=== PATIENT | female | born 1990 | race Caucasian/White ===

== ENCOUNTER 2017-01-20 22:39 | Emergency (ER) | payer SELFPAY ==
[~2017-01-20] VITALS: Ht 162.6 cm; Wt 79.0 kg
[~2017-01-20 22:39] MED LIST: IRON45TA2 PO; PREN-39 PO
[2017-01-20 22:46] VITALS: Ht 162.6 cm; Wt 79.0 kg
[2017-01-20] MEDS ORDERED: NYST1000 PO (23:16)
[2017-01-20] MEDS ORDERED: CLOT30CR24 TOP (23:16)
--- NOTE | 2017-01-20 23:23 | ERD ---
ER Documentation Chief Complaint Date/Time DATE: 01/20/17 TIME: 23:20 Chief Complaint WHITE PATCHES ON TONGUE X 2 DAYS, RIGHT WRIST REDNESS/ITCH HPI 27-year-old female comes emergency department white patches on the time that she noticed 2 days ago she also comes in with right-sided wrist rash. She states that the tongue lesions are not painful, and she does not know how long they have been there for near on the tongue as well as the left side of her mouth. She has not had any trouble swallowing, fevers, chills or drainage to the area. She is also had a pruritic rash on the right wrist for the past 2 days. ROS All systems reviewed and are negative except as per history of present illness. Medications Home Meds Active Scripts Clotrimazole* (Clotrimazole* AF) 1% - 30 Gm Cream.gm., 1 APPLIC TOP BID for 7 Days, TUB Prov:FLORIAN RIDDLE PA-C 01/20/17 Nystatin (Nystatin) 100,000 Unit/1 Ml Oral.susp, 3 ML PO QID for 7 Days, OZ Swish and swallow Prov:FLORIAN RIDDLE PA-C 01/20/17 Reported Medications Iron,Carbonyl (IRON) 45 Mg Tablet, 45 MG PO DAILY 02/09/13 Vits W-Ca,Fe,Fa(<1MG) ( Vitamins) 1 Tab Tablet, 1 TAB PO DAILY 02/09/13 Allergies Allergies: Coded Allergies: No Known Allergy (Verified , 01/20/17) PMhx/Soc Medical and Surgical Hx: pt denies Surgical Hx History of Surgery: No Anesthesia Reaction: No Hx Neurological Disorder: No Hx Respiratory Disorders: No Hx Cardiac Disorders: No Hx Psychiatric Problems: No Hx Miscellaneous Medical Probl: Yes (anemia) Hx Alcohol Use: No Hx Substance Use: No Hx Tobacco Use: No Physical Exam Vitals Vital Signs Date Time Temp Pulse Resp B/P Pulse Ox O2 Delivery O2 Flow Rate FiO2 01/20/17 22:46 99.0 69 16 130/82 99 Physical Exam General: Well-developed, well-nourished. The patient appears in no acute distress. HEENT: Head is normocephalic, atraumatic. No scleral icterus. Oropharynx is clear, there are white patches on the tongue that is circular, also circular white lesions on the left buccal mucosa. There are nondescript local. Neck: Supple. Nontender. Lungs: Clear to auscultation. Normal air movement. Heart: Regular rate and rhythm. S1 and S2 are normal. No murmurs, gallops, or rubs. Abdomen: Nondistended. Extremities: No clubbing or cyanosis. Moving extremities x 4. No weakness. Neurologic: Alert and oriented 3. No focal deficits. Normal speech and gait. Skin: right wrist that has a 1cm rash, erythematous and raised Procedures/MDM 27-year-old female comes in with white patches on tongue, lips and mouth as well as a rash on the right wrist Wrist rash appears to look like a fungal infection, and also itching. Patient also presents with white patches on the tongue, no clear signs of fungal infection in the mouth. She will be given nystatin and was asked by . May consider biopsy or removal. Departure Diagnosis: Primary Impression: Sore in mouth Additional Impression: Rash Condition: Good Patient Instructions: What Are Oral Lesions? (Precancerous and Cancerous), Ana Skin Infection (Adult) Additional Instructions: Call your primary care doctor TOMORROW for an appointment during the next 1-2 days.See the doctor sooner or return here if your condition worsens before your appointment time. If tongue symptoms do not improve, follow up with your primary care doctor for a biopsy. FLORIAN RIDDLE PA-C Jan 20, 2017 23:22
[2017-01-20 23:38] VITALS: BP 126/82; PULSE 60; RESP 16; TEMP 99
== END 2017-01-20 23:41 | disposition home or self-care (01) ==
LOC: FTE 22:39
DX: K13.79 Other lesions of oral mucosa (principal)
CPT/HCPCS: 99283

== ENCOUNTER 2018-06-24 12:14 | Outpatient (CLI) | payer OTHER ==
[~2018-06-24] VITALS: Ht 162.6 cm; Wt 89.9 kg
[~2018-06-24 12:14] MED LIST changes: +CLOT30CR24 TOP; +NYST1000 PO
[2018-06-24 12:21] VITALS: Ht 162.6 cm; Wt 89.9 kg
[2018-06-24 12:23] VITALS: BP 131/85; PULSE 79; RESP 17
[2018-06-24] MEDS ORDERED: PREN-93 PO (12:25)
--- NOTE | 2018-06-24 13:57 | TRIAGE ---
OB Triage Datetime Report Generated by CPN: 06/24/2018 13:56 Datetime: 06/24/2018 13:16 Labor Evaluation Frequency: NONE Monitor Mode: External Pattern: Normal: <= 5 Contractions in 10 Minutes Resting Tone [place]: Relaxed Heart Rate FHR Baseline Rate: 150 Monitor Mode: External US FHR Baseline Changes: No Baseline Change Variability: Moderate 6-25 bpm Accelerations: 15X15 Decelerations: None Category: Category I Datetime: 06/24/2018 12:43 Comments: EFM OFF FOR BEDSIDE U/S. Datetime: 06/24/2018 12:29 Assessment Type: Triage Maternal Assessment Level of Consciousness: Fully Conscious DTR's/Clonus: DTRs 2+; No Clonus Headache: Denies Blurred Vision: No Respiratory Effort: Unlabored; Regular Rhythm; Equal Expansion Breath Sounds, Left: Clear and Equal Breath Sounds, Right: Clear and Equal Nausea/Vomiting: Denies RUQ Epigastric Pain: Denies Lower Extremities Edema: None Upper Extremities Edema: None Facial Edema: None Fall Risk Assessment History of Falling: (0) No Secondary Diagnosis: (0) No Ambulatory Aid: (0) Bedrest/Nurse Assist IV Therapy: (0) No Gait: (0) Normal/Bedrest/Immobile Mental Status: (0) Oriented to Own Ability Fall Score: 0 Fall Risk Score Definition: No Risk: No action required Datetime: 06/24/2018 12:26 Time of Arrival: 06/24/2018 12:01 EGA: 31.3 Arrived By: Ambulatory Arrived From: Office Chief Complaint: HIGH BLOOD PRESSURES Movement: Present Contractions: Denies/Absent Rupture of Membranes: Denies Vaginal Bleeding: None Vaginal Discharge: Denies Recent Sexual Intercouse: Denies Abdominal Trauma: Not Applicable Patient Complaints: None Time Provider Notified: 06/24/2018 13:45 Provider Notified: ESHAJOHANNY Initial Plan: BLOOD PRESSURE CHECK, PIH LABS, BPP Datetime: 06/24/2018 12:16 Monitor Mode: External Monitor Mode: External US
--- NOTE | 2018-07-29 18:24 | PN ---
Triage Information Date/Time Reason for visit: [facility] for NST BPP Weeks of Gestation 32+ /Para n/a Diabetes: none Hypertention: none Objective Heart Rate: 140's Contractions: None Disposition: Discharge Assessment/Plan BPP 04/30 Precautions discussed Questions answered Labs reviewed Follow up with provider MENDOZA BEYER M.D. Jul 29, 2018 18:24
== END 2018-06-24 14:08 | disposition home or self-care (01) ==
LOC: OBT 12:14 → L-D 12:14 → OBT 14:08
PROVIDERS: ATTEND Obstetrics & Gynecology
DX: O13.3 Gestational [pregnancy-induced] hypertension without significant proteinuria, third trimester (principal); Z3A.32 32 weeks gestation of pregnancy
CPT/HCPCS: 76815; 76818; 80053; 81001; 84560; 85025; 85384; 85610; 85730; Z7500; G0463

== ENCOUNTER 2018-06-26 12:57 | Outpatient (CLI) | END 2018-06-26 17:40 | disposition home or self-care (01) ==

== ENCOUNTER 2018-07-09 13:40 | Inpatient (IN) | END 2018-07-11 16:45 | disposition home or self-care (01) | DRG 833 ==

== ENCOUNTER 2018-07-13 11:19 | Outpatient (CLI) | END 2018-07-13 13:25 | disposition home or self-care (01) ==

== ENCOUNTER 2018-07-15 14:29 | Outpatient (CLI) | END 2018-07-15 16:30 | disposition home or self-care (01) ==

== ENCOUNTER 2018-07-18 14:59 | Outpatient (CLI) | END 2018-07-18 18:32 | disposition home or self-care (01) ==

== ENCOUNTER 2018-07-23 13:18 | Inpatient (IN) | payer OTHER ==
[~2018-07-23] VITALS: Ht 162.6 cm; Wt 91.9 kg
[~2018-07-23 13:18] MED LIST changes: -CLOT30CR24 TOP; -IRON45TA2 PO; -NYST1000 PO; -PREN-39 PO; +PREN-93 PO
[2018-07-23 15:08] VITALS: Ht 162.6 cm; Wt 91.9 kg
[2018-07-23] MEDS ORDERED: LACTATED RINGER'S 1,000 ML IV SCH (17:42)
--- NOTE | 2018-07-23 18:05 | TRIAGE ---
OB Triage Datetime Report Generated by CPN: 07/23/2018 18:04 Datetime: 07/23/2018 17:18 Labor Evaluation Frequency: 0 Monitor Mode: External Heart Rate FHR Baseline Rate: 130 Monitor Mode: External US FHR Baseline Changes: No Baseline Change Variability: Moderate 6-25 bpm Accelerations: 15X15 Decelerations: None Category: Category I Pain Assessment Pain Presence: None/Denies Datetime: 07/23/2018 15:46 Labor Evaluation Frequency: 0 Monitor Mode: External Heart Rate FHR Baseline Rate: 140 Monitor Mode: External US FHR Baseline Changes: No Baseline Change Variability: Moderate 6-25 bpm Accelerations: 15X15 Decelerations: None Category: Category I Pain Assessment Pain Presence: None/Denies Datetime: 07/23/2018 15:25 Labor Evaluation Frequency: 0 Monitor Mode: External Heart Rate FHR Baseline Rate: 140 Monitor Mode: External US FHR Baseline Changes: No Baseline Change Variability: Moderate 6-25 bpm Accelerations: 15X15 Decelerations: None Category: Category I Pain Assessment Pain Presence: None/Denies Datetime: 07/23/2018 15:00 Time of Arrival: 07/23/2018 15:00 EGA: 35.4 Arrived By: Ambulatory Arrived From: Office Chief Complaint: HIGH BP Movement: Present Contractions: Denies/Absent Rupture of Membranes: Denies Vaginal Bleeding: None Vaginal Discharge: Denies Recent Sexual Intercouse: Denies Abdominal Trauma: Not Applicable Patient Complaints: None Time Provider Notified: 07/23/2018 17:28 Provider Notified: HADADIAN Initial Plan: CBC,CMP,URIC ACID, UA, BPP, DORCAS Datetime: 07/23/2018 14:55 Labor Evaluation Frequency: 0 Monitor Mode: External Heart Rate FHR Baseline Rate: 140 Monitor Mode: External US FHR Baseline Changes: No Baseline Change Variability: Moderate 6-25 bpm Accelerations: 15X15 Decelerations: None Category: Category I Pain Assessment Pain Presence: None/Denies Datetime: 07/23/2018 14:21 Stage of : OB Triage Assessment Type: Triage Maternal Assessment Level of Consciousness: Fully Conscious DTR's/Clonus: DTRs 2+; No Clonus Headache: Denies Blurred Vision: No Respiratory Effort: Unlabored; Regular Rhythm; Equal Expansion Breath Sounds, Left: Clear and Equal Breath Sounds, Right: Clear and Equal Nausea/Vomiting: Denies RUQ Epigastric Pain: Denies Facial Edema: None Temperature Route: Axillary Temperature Route: Oral Fall Risk Assessment History of Falling: (0) No Secondary Diagnosis: (0) No Ambulatory Aid: (0) Bedrest/Nurse Assist IV Therapy: (0) No Gait: (0) Normal/Bedrest/Immobile Mental Status: (0) Oriented to Own Ability Fall Score: 0 Fall Risk Score Definition: No Risk: No action required Datetime: 07/18/2018 18:24 Labor Evaluation Frequency: 0 Monitor Mode: External Pattern: Normal: <= 5 Contractions in 10 Minutes Resting Tone [place]: Relaxed Heart Rate FHR Baseline Rate: 140 Monitor Mode: External US Variability: Moderate 6-25 bpm Accelerations: 15X15 Decelerations: None Category: Category I Datetime: 07/18/2018 18:00 Labor Evaluation Frequency: X2 Monitor Mode: External Duration (sec)2399: 40-60 Quality: Mild Pattern: Normal: <= 5 Contractions in 10 Minutes Resting Tone [place]: Relaxed Heart Rate FHR Baseline Rate: 140 Monitor Mode: External US Variability: Moderate 6-25 bpm Accelerations: 15X15 Decelerations: None Category: Category I Datetime: 07/18/2018 17:00 Labor Evaluation Frequency: NONE Monitor Mode: External Pattern: Normal: <= 5 Contractions in 10 Minutes Resting Tone [place]: Relaxed Heart Rate FHR Baseline Rate: 140 Monitor Mode: External US Variability: Moderate 6-25 bpm Accelerations: 15X15 Decelerations: None Category: Category I Datetime: 07/18/2018 15:52 Fall Score: 0 Fall Risk Score Definition: No Risk: No action required Datetime: 07/18/2018 15:51 EGA: 34.6 Datetime: 07/15/2018 14:57 Fall Score: 0 Fall Risk Score Definition: No Risk: No action required Datetime: 07/15/2018 14:54 EGA: 34.3 Datetime: 07/13/2018 12:10 Fall Score: 0 Fall Risk Score Definition: No Risk: No action required Datetime: 07/11/2018 08:24 Fall Score: 20 Fall Risk Score Definition: No Risk: No action required Datetime: 07/10/2018 19:30 Fall Score: 20 Fall Risk Score Definition: No Risk: No action required Datetime: 07/10/2018 07:30 Fall Score: 20 Fall Risk Score Definition: No Risk: No action required Datetime: 07/09/2018 20:04 Fall Score: 20 Fall Risk Score Definition: No Risk: No action required Datetime: 07/09/2018 14:45 EGA: 34.1 Fall Score: 20 Fall Risk Score Definition: No Risk: No action required Datetime: 07/09/2018 12:27 Fall Score: 0 Fall Risk Score Definition: No Risk: No action required Datetime: 07/09/2018 12:26 EGA: 33.4 Datetime: 06/26/2018 14:04 Fall Score: 0 Fall Risk Score Definition: No Risk: No action required Datetime: 06/26/2018 14:01 EGA: 31.5 Datetime: 06/24/2018 12:29 Fall Score: 0 Fall Risk Score Definition: No Risk: No action required Datetime: 06/24/2018 12:26 EGA: 31.3
[2018-07-23 18:32] VITALS: BP 141/91; PULSE 92; RESP 18
--- NOTE | 2018-07-23 18:39 | HP ---
Date/Time of Note Date/Time of Note DATE: 07/23/18 TIME: 18:24 OB - History Hx of Present Free Text/Dictation 28-year-old with single intrauterine at 35 weeks and 4 days with a VIKTORIA of 08/23 2018 sent from her primary OB office due to elevated of blood pressure of 155/105. She has a 24-hour urine protein on 07/10/2018 which was 1770. She has received betamethasone x2 on 07/10/2018 and and currently is steroid benefited. She states good movement. She denies nausea, vomiting, shortness of breath, chest pain, headache, visual changes, vaginal bleeding or LOF. Chief Complaint: Elevated blood pressure Estimated Due Date: Aug 23, 2018 : 3 Para: 2 Spontaneous : 0 Therapeutic : 0 Care: Good Care Ultrasounds: Normal mid trimester US Obstetrical Complications: Pre-eclampsia Medical Complications: None Past Family/Social History * Past Medical, Surgical, Family and Obstetric Histories reviewed from chart. Blood Type: AB+ Rubella: immune RPR/VDRL: Negative HBsAG: Negative OB Admission Exam Vital Signs Vital Signs Blood pressure 139/87, pulse rate 72/minutes, respiratory rate 14/minutes, temperature 98.1 Physical Exam HEENT: WNL Heart: Rhythm Normal Lungs: Clear Abdomen: WNL Extremities: Normal Reflexes: Normal Membranes: Intact Heart Rate: 140's Accelerations: Accelerations Present Decelerations: No Decelerations Varibility: Moderate Contractions on Admission: None Last 72 hours Lab Results CBC & BMP 07/23/18 14:26 Liver Function Test 07/23/18 14:26 Alanine Aminotransferase (ALT/SGPT) 18 Albumin 3.6 Alkaline Phosphatase 184 H Aspartate Amino Transf (AST/SGOT) 15 Direct Bilirubin 0.00 Total Protein 6.6 OB Assessment/Plan Other plan: 28-year-old at 35 weeks and 4 days with preeclampsia admitted for close observation. She has a 24-hour urine protein on 07/10/2018 which was 1770. She has received betamethasone x2 on 07/10/2018 and currently is steroid benefited. CBC and CMP is within normal limits. Uric acid is 7.7. I have discussed patient with Dr. Gongora over the phone who has agreed with admission and close observation. She recommended delivery with any symptom or sign of preeclampsia with severe features, placental abruption or nonreassuring heart rate - FHR: No sign of metabolic acidosis- Category I - Continuous EFM, toco - Please see the orders - AB+/Rubella: Immune - Ultrasound performed, DORCAS 14.3, BPP 8 out of 8 - GBS done - Labs, ultrasound, admission, management discussed in detail with patient. She expressed understanding. All of her questions answered. Patient discussed with primary OB too. . RYANNE HENDERSON Jul 23, 2018 18:37
[2018-07-23] MEDS ORDERED: LACTATED RINGER'S 1,000 ML IV PRN (20:38)
[2018-07-24] MEDS: PRENATAL VITAMIN PO SCH (09:13)
--- NOTE | 2018-07-24 17:18 | QN ---
Documentation Comment pateint seen and evaluated no complaints no headache, n/v, sob visual changes epigastric pain vs stable afebrile ab gravid, nt extremity no edema no calf tenderness a iup at 35 wks ga, preeclampsia without severe features p/ consider discharge home tomorrow is patient has no symptoms per TESHA Dalton MD Jul 24, 2018 17:18
--- NOTE | 2018-07-25 03:42 | CONS ---
DATE OF ADMISSION: 07/23/2018 DATE OF CONSULTATION: 07/24/2018 HISTORY OF PRESENT ILLNESS: The patient is a G3, P2 at 35 and 5, who was admitted from clinic after having severe range blood pressures. At the hospital, her blood pressures have been in the normal to moderate range. Labs are normal. She has no symptoms. She denies any history of hypertension. Pr egnancy 2x vaginal delivery, 9 pounds. No evidence of hypertension. PAST MEDICAL HISTORY: Otherwise negative. PHYSICAL EXAMINATION: Vital signs: Blood pressure 131/93. Physical exam was deferred. heart tones reassuring. A 24-hour urine for protein is over 1000 mg. Received betamethasone less than 14 days ago. RECOMMENDATIONS: Monitor overnight. If there is no evidence of severe hypertension and she is asymp tomatic and heart tone is reassuring, we might consider discharging the patient home with asser tion of the modified bed rest, testing twice weekly, and labs weekly. If there is any uncertainty in terms of elevated blood pressure, nonreassuring heart tone, and maternal symptoms, delivery is recommended. I did explain to them in detail the necessity of the bed rest, and she is to stay with her mother dilshad se to the hospital since they live at [place]. However, if she is unable to stay with her mother o r she feels that at home she cannot rest, then I do recommend in-house management. In case of even 1 severe range blood pressure, I do recommend delivery because she, on multiple visit s at her clinic, had systolic blood pressure over 160, but at this visit currently, she is asymptomat ic with no evidence of severe blood pressures. Therefore, I am comfortable to continue with the preg sandi. However, if she does not have any severe range blood pressure in the hospital, then I do tessie mmend delivery as she is severe preeclamptic with over 34 weeks. Please schedule testing twice weekly and labs weekly and delivery maximum at 37 weeks, soon er otherwise as stated above. Dictated By: ALPHONSE LOUIS MD ST/NTS Conf#: [id number] DID#: [id number] CC: TESHA DASH MD;*EndCC*
--- NOTE | 2018-07-25 08:50 | DS ---
DATE OF ADMISSION: 07/23/2018 DATE OF DISCHARGE: 07/25/2018 PRIMARY DIAGNOSES: Intrauterine at 35 weeks and 6 days gestational age, preeclampsia witho ut severe features, undelivered. PROCEDURE: None. CONDITION ON DISCHARGE: Stable. ACTIVITY: As tolerates. DIET: Regular. MEDICATIONS ON DISCHARGE: Continue vitamins. HISTORY OF PRESENT ILLNESS: Ms. Joselyn Barnhart is a 28-year-old 3, para 2, intrauterine pre gnancy at 35 weeks and 6 days gestational age, was admitted on 07/23/2018 secondary to elevated uric acid and also was sent from the office for elevated blood pressures. She was diagnosed with preeclam psia. However, she has no severe features. Her blood pressures are within normal. She denies any h eadache, nausea, vomiting, shortness of breath, visual change, or epigastric pain. HOSPITAL COURSE: The patient is currently in no apparent distress and patient given strict preeclamp tic precautions to go home. She will follow up for her scheduled nonstress test and biophysical prof emily. She is also instructed to do her blood pressures on a regular basis and to follow up in the ER if her blood pressures are in the severe range. She will be scheduled on 08/02/2018 for induction. Again, strict preeclamptic precautions given to patient. Dictated By: TESHA GARCIA/LIO Conf#: [id number] DID#: [id number]
[2018-07-25] MEDS: PRENATAL VITAMIN PO SCH (09:38)
== END 2018-07-25 10:20 | disposition home or self-care (01) | DRG 833 ==
LOC: L-D 13:18 → OBT 13:18 → L-D 13:49 → OBT 17:45 → L-D 17:45
PROVIDERS: ADMIT Obstetrics & Gynecology; ATTEND Obstetrics & Gynecology
DX: O14.93 Unspecified pre-eclampsia, third trimester (principal); Z3A.35 35 weeks gestation of pregnancy
CPT/HCPCS: 76818; 80053; 81001; 84560; 85025; 85384; 85610; 85730; 86900; 86901; G0463; J7120

== ENCOUNTER 2018-07-30 18:11 | Outpatient (CLI) | payer OTHER ==
--- NOTE | 2018-07-31 00:15 | PN ---
Triage Information Date/Time July 30, 2018 Reason for visit: Weeks of Gestation 36 weeks and 4 days /Para 3 para 2 Diabetes: none Hypertention: induced Additional information 28-year-old with IUP at 36 weeks and 4 days and -induced hypertension was sent for rule out preeclampsia due to elevated blood pressure noted during office visit. Patient denies any headache, blurred vision epigastric pain or right upper quadrant pain. Noted to have blood pressure in the range of 140s 150s over 80s and her last 3 encounter visits. Denies any leaking of fluid, vaginal bleeding decreased movement or any other complaint. Objective Heart Rate: 130's Heart Rate Comments Reassuring and category 1 Contractions: None Exam General appearance: Alert and oriented x4 does not appear to be in any acute distress. Abdomen: Soft, gravid, fundal height consistent with gestational age NST: Category 1 and reassuring PIH labs are all negative UA negative for protein Serial blood pressure done during observation in triage all in the range of 130s-140s over 80s-90s. Results/Medications Result Diagram: 07/30/18190007/30/181900 Results 24 hrs Laboratory Tests Test 07/30/18 19:00 07/30/18 19:01 07/30/18 19:02 Urine Color YELLOW Urine Clarity CLEAR Urine pH 6.0 Urine Specific [place] 1.014 Urine Ketones NEGATIVE Urine Nitrite NEGATIVE Urine Bilirubin NEGATIVE Urine Urobilinogen NEGATIVE Urine Leukocyte Esterase TRACE A Urine Microscopic RBC 4 Urine Microscopic WBC 8 H Urine Squamous Epithelial Cells FEW Urine Calcium Oxalate Crystals FEW A Urine Bacteria FEW A Urine Mucus FEW A Urine Hemoglobin NEGATIVE Urine Glucose NEGATIVE Urine Total Protein NEGATIVE White Blood Count 10.1 Red Blood Count 4.52 Hemoglobin 11.0 L Hematocrit 35.2 L Mean Corpuscular Volume 77.9 L Mean Corpuscular Hemoglobin 24.3 L Mean Corpuscular Hemoglobin Concent 31.3 L Red Cell Distribution Width 15.8 H Platelet Count 213 Mean Platelet Volume 11.7 H Immature Granulocytes % 0.700 H Neutrophils % 61.3 Lymphocytes % 26.8 Monocytes % 9.1 Eosinophils % 1.8 Basophils % 0.3 Nucleated Red Blood Cells % 0.0 Immature Granulocytes # 0.070 H Neutrophils # 6.2 Lymphocytes # 2.7 Monocytes # 0.9 Eosinophils # 0.2 Basophils # 0.0 Nucleated Red Blood Cells # 0.0 Sodium Level 137 Potassium Level 4.3 Chloride Level 109 Carbon Dioxide Level 20 L Anion Gap 8 Blood Urea Nitrogen 12 Creatinine 0.73 Est Glomerular Filtrat Rate mL/min > 60 Glucose Level 86 Uric Acid 7.9 Calcium Level 13.0 H Total Bilirubin 0.0 L Direct Bilirubin 0.00 Indirect Bilirubin 0.0 Aspartate Amino Transf (AST/SGOT) 18 Alanine Aminotransferase (ALT/SGPT) 17 Alkaline Phosphatase 207 H Total Protein 7.4 Albumin 3.9 Globulin 3.50 H Albumin/Globulin Ratio 1.11 Prothrombin Time 11.7 L Prothrombin Time Ratio 0.9 INR International Normalized Ratio 0.85 Activated Partial Thromboplast Time 23.9 Fibrinogen 443.0 Imaging Results PROCEDURE: Biophysical profile. CLINICAL INDICATION: Pelvic pain, hypertension. TECHNIQUE: Multiple sonographic images of the pelvis were obtained with transabdominal technique. COMPARISON: 07/23/2018. FINDINGS: There is a single living intrauterine gestation with the fetus in a vertex position. The placenta is posterior and left lateral in location, grade II to III. heart tones of 163 beats per minute are identified. There is normal amniotic fluid volume with an DORCAS of 17.8 cm. breathing movements = 2 Gross body movements = 2 tone = 2 Qualitative AFV = 2 IMPRESSION: Biophysical profile 8 out of 8. Disposition: Discharge Assessment/Plan IUP at 36 weeks and 4 days PIH No evidence of severe preeclampsia Mild elevated blood pressure. Asymptomatic PIH labs are normal testing reassuring Patient will be discharged home with a strict PIH precaution, kick counts and labor precautions Patient has been scheduled for induction at 37 weeks Advised patient rest at home Return to triage as needed and to keep her appointment at 37 weeks for induction. Patient verbalized understanding. All questions were answered to the patient's best satisfaction. LAURENCE NAVARRO MD Jul 31, 2018 00:15
--- NOTE | 2018-07-31 07:22 | TRIAGE ---
OB Triage Datetime Report Generated by CPN: 07/31/2018 07:21 Datetime: 07/30/2018 22:53 Stage of : OB Triage Labor Evaluation Frequency: 2-4 Monitor Mode: External Duration (sec)2399: 50-90 Pattern: Normal: <= 5 Contractions in 10 Minutes Resting Tone [place]: Relaxed Heart Rate FHR Baseline Rate: 130 Monitor Mode: External US Variability: Moderate 6-25 bpm Accelerations: 15X15 Decelerations: None Category: Category I Datetime: 07/30/2018 22:00 Stage of : OB Triage Labor Evaluation Frequency: 2-4 Monitor Mode: External Duration (sec)2399: 50-90 Pattern: Normal: <= 5 Contractions in 10 Minutes Resting Tone [place]: Relaxed Heart Rate FHR Baseline Rate: 130 Monitor Mode: External US Variability: Moderate 6-25 bpm Accelerations: 15X15 Decelerations: None Category: Category I Pain Assessment Pain Scale: 0 Pain Presence: None/Denies Pain Type: N/A Pain Relief Measures: Comfort Measures Datetime: 07/30/2018 21:56 Vaginal Exam Dilatation (cms): 0.0 Datetime: 07/30/2018 21:00 Stage of : OB Triage Labor Evaluation Frequency: 2-5 Monitor Mode: External Duration (sec)2399: 50-80 Pattern: Normal: <= 5 Contractions in 10 Minutes Resting Tone [place]: Relaxed Heart Rate FHR Baseline Rate: 140 Monitor Mode: External US Variability: Moderate 6-25 bpm Accelerations: 15X15 Decelerations: None Category: Category I Datetime: 07/30/2018 20:24 Time of Arrival: 07/30/2018 18:05 EGA: 36.4 Movement: Present Contractions: Occasional Rupture of Membranes: Denies Vaginal Bleeding: None Vaginal Discharge: Denies Recent Sexual Intercouse: Denies Abdominal Trauma: Not Applicable Patient Complaints: None Time Provider Notified: 07/30/2018 21:05 Provider Notified: ESHAGHIAN Initial Plan: VS, NST, PIH panel, BPP Datetime: 07/30/2018 20:00 Stage of : OB Triage Assessment Type: Triage Maternal Assessment Level of Consciousness: Fully Conscious DTR's/Clonus: DTRs 2+; No Clonus Headache: Denies Blurred Vision: No Respiratory Effort: Unlabored; Regular Rhythm; Equal Expansion Breath Sounds, Left: Clear and Equal Breath Sounds, Right: Clear and Equal Nausea/Vomiting: Denies RUQ Epigastric Pain: Denies Lower Extremities Edema: None Degree: None Upper Extremities Edema: None Degree: None Facial Edema: None Temperature Route: Axillary Fall Risk Assessment History of Falling: (0) No Secondary Diagnosis: (0) No Ambulatory Aid: (0) Bedrest/Nurse Assist IV Therapy: (0) No Gait: (0) Normal/Bedrest/Immobile Mental Status: (0) Oriented to Own Ability Fall Score: 0 Fall Risk Score Definition: No Risk: No action required Labor Evaluation Frequency: Occasional Monitor Mode: External Duration (sec)2399: 40-50 Resting Tone [place]: Relaxed Contraction Comments: patient denies feeling any contractions Heart Rate FHR Baseline Rate: 145 Monitor Mode: External US Variability: Moderate 6-25 bpm Accelerations: 15X15 Decelerations: None Category: Category I Pain Assessment Pain Scale: 0 Pain Presence: None/Denies Pain Type: N/A Pain Goal: 0 Pain Relief Measures: Comfort Measures Datetime: 07/25/2018 10:11 Labor Evaluation Frequency: x3 Monitor Mode: External Duration (sec)2399: 50-60 Quality: Mild Resting Tone [place]: Relaxed Contraction Comments: pt denies feeling UCs Heart Rate FHR Baseline Rate: 135 Monitor Mode: External US FHR Baseline Changes: No Baseline Change Variability: Moderate 6-25 bpm Accelerations: 15X15 Decelerations: None Category: Category I Datetime: 07/25/2018 07:53 Assessment Type: Ongoing Assessment Maternal Assessment Level of Consciousness: Fully Conscious DTR's/Clonus: DTRs 2+; No Clonus Headache: Denies Blurred Vision: No Respiratory Effort: Unlabored; Regular Rhythm; Equal Expansion Breath Sounds, Left: Clear and Equal Breath Sounds, Right: Clear and Equal Nausea/Vomiting: Denies RUQ Epigastric Pain: Denies Lower Extremities Edema: Bilateral Lower Extremities Degree: 1+ Upper Extremities Edema: None Degree: None Facial Edema: None Fall Risk Assessment History of Falling: (0) No Secondary Diagnosis: (0) No Ambulatory Aid: (0) Bedrest/Nurse Assist IV Therapy: (0) No Gait: (0) Normal/Bedrest/Immobile Mental Status: (0) Oriented to Own Ability Fall Score: 0 Fall Risk Score Definition: No Risk: No action required Datetime: 07/25/2018 07:52 Stage of : Antepartum Temperature Route: Oral Pain Assessment Pain Scale: 0 Pain Presence: None/Denies Pain Type: N/A Datetime: 07/25/2018 00:37 Stage of : Antepartum Temperature Route: Oral Pain Assessment Pain Scale: 0 Pain Presence: None/Denies Pain Type: N/A Datetime: 07/24/2018 21:01 Pain Assessment Pain Scale: 0 Pain Presence: None/Denies Pain Type: N/A Datetime: 07/24/2018 20:39 Stage of : Antepartum Labor Evaluation Frequency: x1 Monitor Mode: External Duration (sec)2399: 80 Quality: Mild Pattern: Normal: <= 5 Contractions in 10 Minutes Resting Tone [place]: Relaxed Heart Rate FHR Baseline Rate: 135 Monitor Mode: External US Variability: Moderate 6-25 bpm Accelerations: 15X15 Decelerations: None Category: Category I Datetime: 07/24/2018 20:00 Stage of : Antepartum Assessment Type: Ongoing Assessment Maternal Assessment Level of Consciousness: Fully Conscious DTR's/Clonus: DTRs 2+; No Clonus Headache: Denies Blurred Vision: No Respiratory Effort: Unlabored; Regular Rhythm; Equal Expansion Breath Sounds, Left: Clear and Equal Breath Sounds, Right: Clear and Equal Nausea/Vomiting: Denies RUQ Epigastric Pain: Denies Lower Extremities Edema: None Degree: None Upper Extremities Edema: None Degree: None Facial Edema: None Temperature Route: Oral Fall Risk Assessment History of Falling: (0) No Secondary Diagnosis: (0) No Ambulatory Aid: (0) Bedrest/Nurse Assist IV Therapy: (0) No Gait: (0) Normal/Bedrest/Immobile Mental Status: (0) Oriented to Own Ability Fall Score: 0 Fall Risk Score Definition: No Risk: No action required Pain Assessment Pain Scale: 0 Pain Presence: None/Denies Pain Type: N/A Datetime: 07/24/2018 19:58 Monitor Mode: External Monitor Mode: External US Comments: Monitors applied. NST started. Datetime: 07/24/2018 19:17 Stage of : Antepartum Datetime: 07/24/2018 15:28 Maternal Assessment Level of Consciousness: Fully Conscious DTR's/Clonus: DTRs 2+ Headache: Denies Blurred Vision: No Nausea/Vomiting: Denies RUQ Epigastric Pain: Denies Facial Edema: None Datetime: 07/24/2018 14:38 Stage of : Antepartum Pain Presence: None/Denies Pain Type: N/A Datetime: 07/24/2018 13:59 Stage of : Antepartum Maternal Assessment Level of Consciousness: Fully Conscious DTR's/Clonus: DTRs 2+ Headache: Denies Blurred Vision: No Nausea/Vomiting: Denies RUQ Epigastric Pain: Denies Facial Edema: None Pain Presence: None/Denies Pain Type: N/A Datetime: 07/24/2018 12:18 Stage of : Antepartum Pain Presence: None/Denies Pain Type: N/A Datetime: 07/24/2018 11:16 Stage of : Antepartum Maternal Assessment Level of Consciousness: Fully Conscious DTR's/Clonus: DTRs 2+ Headache: Denies Blurred Vision: No Nausea/Vomiting: Denies RUQ Epigastric Pain: Denies Facial Edema: None Pain Presence: None/Denies Pain Type: N/A Datetime: 07/24/2018 10:32 Stage of : Antepartum Labor Evaluation Frequency: 0 Pattern: Normal: <= 5 Contractions in 10 Minutes Resting Tone [place]: Relaxed Heart Rate FHR Baseline Rate: 145 Monitor Mode: External US Variability: Moderate 6-25 bpm Accelerations: 15X15 Decelerations: None Category: Category I Pain Presence: None/Denies Pain Type: N/A Datetime: 07/24/2018 09:10 Stage of : Antepartum Maternal Assessment Level of Consciousness: Fully Conscious DTR's/Clonus: DTRs 2+ Headache: Denies Blurred Vision: No Nausea/Vomiting: Denies RUQ Epigastric Pain: Denies Facial Edema: None Pain Presence: None/Denies Pain Type: N/A Datetime: 07/24/2018 08:24 Stage of : Antepartum Pain Assessment Pain Scale: 0 Pain Presence: None/Denies Pain Type: N/A Pain Goal: 0 Datetime: 07/24/2018 07:23 Stage of : Antepartum Assessment Type: Ongoing Assessment Maternal Assessment Level of Consciousness: Fully Conscious DTR's/Clonus: DTRs 2+; No Clonus Headache: Denies Blurred Vision: No Respiratory Effort: Unlabored; Regular Rhythm; Equal Expansion Breath Sounds, Left: Clear and Equal Breath Sounds, Right: Clear and Equal Nausea/Vomiting: Denies RUQ Epigastric Pain: Denies Lower Extremities Edema: None Degree: None Upper Extremities Edema: None Degree: None Facial Edema: None Temperature Route: Oral Fall Risk Assessment History of Falling: (0) No Secondary Diagnosis: (0) No Ambulatory Aid: (0) Bedrest/Nurse Assist IV Therapy: (0) No Gait: (0) Normal/Bedrest/Immobile Mental Status: (0) Oriented to Own Ability Fall Score: 0 Fall Risk Score Definition: No Risk: No action required Monitor Mode: NST Q SHIFT Monitor Mode: NST Q SHIFT Pain Assessment Pain Scale: 0 Pain Presence: None/Denies Pain Type: N/A Pain Goal: 0 Datetime: 07/24/2018 05:52 Stage of : Antepartum Pain Assessment Pain Scale: 0 Pain Presence: None/Denies Pain Type: N/A Datetime: 07/24/2018 04:42 Stage of : Antepartum Maternal Assessment Level of Consciousness: Fully Conscious DTR's/Clonus: DTRs 2+; No Clonus Headache: Denies Breath Sounds, Left: Clear and Equal Breath Sounds, Right: Clear and Equal Nausea/Vomiting: Denies RUQ Epigastric Pain: Denies Temperature Route: Oral Monitor Mode: Palpation Contraction Comments: abdomen soft upon palpation. movement noted. pt denies feeling uc's or cramping Comments: pt reported movement Pain Assessment Pain Scale: 0 Pain Presence: None/Denies Pain Type: N/A Datetime: 07/24/2018 02:42 Stage of : Antepartum Monitor Mode: Palpation Contraction Comments: abdomen soft upon palpation. pt denies feeling uc's or cramping Comments: pt reported movement. Pain Assessment Pain Scale: 0 Pain Presence: None/Denies Pain Type: N/A Datetime: 07/24/2018 00:17 Stage of : Antepartum Maternal Assessment Level of Consciousness: Fully Conscious DTR's/Clonus: DTRs 2+; No Clonus Headache: Denies Breath Sounds, Left: Clear and Equal Breath Sounds, Right: Clear and Equal Nausea/Vomiting: Denies RUQ Epigastric Pain: Denies Temperature Route: Oral Monitor Mode: Palpation Contraction Comments: ABDOMEN SOFT UPON PALPATION. PT DENIES FEELING UC'S OR CRAMPING. Comments: PT REPORTED MOVEMENT. Pain Assessment Pain Scale: 0 Pain Presence: None/Denies Pain Type: N/A Datetime: 07/23/2018 20:12 Stage of : Antepartum Labor Evaluation Frequency: X0 Monitor Mode: External Duration (sec)2399: X0 Pattern: Normal: <= 5 Contractions in 10 Minutes Resting Tone [place]: Relaxed Contraction Comments: removed Heart Rate FHR Baseline Rate: 145 Monitor Mode: External [place] Variability: Moderate 6-25 bpm Accelerations: 15X15 Decelerations: None Category: Category I Comments: removed Datetime: 07/23/2018 19:34 Stage of : Antepartum Labor Evaluation Frequency: IRRITABILITY Monitor Mode: External Duration (sec)2399: 30-40 Pattern: Normal: <= 5 Contractions in 10 Minutes Resting Tone [place]: Relaxed Heart Rate FHR Baseline Rate: 145 Monitor Mode: External US Variability: Moderate 6-25 bpm Accelerations: 15X15 Decelerations: None Datetime: 07/23/2018 19:15 Stage of : Antepartum Assessment Type: Ongoing Assessment Maternal Assessment Level of Consciousness: Fully Conscious DTR's/Clonus: DTRs 2+; No Clonus Headache: Denies Blurred Vision: No Respiratory Effort: Unlabored; Regular Rhythm; Equal Expansion Breath Sounds, Left: Clear and Equal Breath Sounds, Right: Clear and Equal Nausea/Vomiting: Denies RUQ Epigastric Pain: Denies Lower Extremities Edema: Bilateral Lower Extremities Degree: 1+ Upper Extremities Edema: None Degree: None Facial Edema: None Temperature Route: Oral Fall Risk Assessment History of Falling: (0) No Secondary Diagnosis: (0) No Ambulatory Aid: (0) Bedrest/Nurse Assist IV Therapy: (0) No Gait: (0) Normal/Bedrest/Immobile Mental Status: (0) Oriented to Own Ability Fall Score: 0 Fall Risk Score Definition: No Risk: No action required Pain Assessment Pain Scale: 0 Pain Presence: None/Denies Pain Type: N/A Datetime: 07/23/2018 19:14 Stage of : Antepartum Monitor Mode: Palpation Pattern: Normal: <= 5 Contractions in 10 Minutes Resting Tone [place]: Relaxed Contraction Comments: ABDOMEN SOFT UPON PALPATION. PT DENIES FEELING UC'S OR CRAMPING Monitor Mode: External US Comments: PT ACKNOWLEDGES MOVEMENT. Datetime: 07/23/2018 19:00 Labor Evaluation Frequency: occasional Monitor Mode: External Duration (sec)2399: 40-60 Quality: Mild Pattern: Normal: <= 5 Contractions in 10 Minutes Resting Tone [place]: Relaxed Heart Rate FHR Baseline Rate: 140 Monitor Mode: External US Variability: Moderate 6-25 bpm Accelerations: 15X15 Decelerations: None Category: Category I Pain Presence: None/Denies Datetime: 07/23/2018 18:23 Assessment Type: Admission Assessment Vaginal Bleeding: None Maternal Assessment Level of Consciousness: Fully Conscious DTR's/Clonus: DTRs 2+; No Clonus Headache: Denies Blurred Vision: No Respiratory Effort: Unlabored; Regular Rhythm; Equal Expansion Breath Sounds, Left: Clear and Equal Breath Sounds, Right: Clear and Equal Nausea/Vomiting: Denies RUQ Epigastric Pain: Denies Lower Extremities Edema: Bilateral Lower Extremities Degree: 1+ Upper Extremities Edema: None Degree: None Facial Edema: None Fall Risk Assessment History of Falling: (0) No Secondary Diagnosis: (0) No Ambulatory Aid: (0) Bedrest/Nurse Assist IV Therapy: (0) No Gait: (0) Normal/Bedrest/Immobile Mental Status: (0) Oriented to Own Ability Fall Score: 0 Fall Risk Score Definition: No Risk: No action required Pain Assessment Pain Scale: 0 Pain Presence: None/Denies Pain Type: N/A Datetime: 07/23/2018 15:00 EGA: 35.4 Datetime: 07/23/2018 14:21 Fall Score: 0 Fall Risk Score Definition: No Risk: No action required Datetime: 07/18/2018 15:52 Fall Score: 0 Fall Risk Score Definition: No Risk: No action required Datetime: 07/18/2018 15:51 EGA: 34.6 Datetime: 07/15/2018 14:57 Fall Score: 0 Fall Risk Score Definition: No Risk: No action required Datetime: 07/15/2018 14:54 EGA: 34.3 Datetime: 07/13/2018 12:10 Fall Score: 0 Fall Risk Score Definition: No Risk: No action required Datetime: 07/11/2018 08:24 Fall Score: 20 Fall Risk Score Definition: No Risk: No action required Datetime: 07/10/2018 19:30 Fall Score: 20 Fall Risk Score Definition: No Risk: No action required Datetime: 07/10/2018 07:30 Fall Score: 20 Fall Risk Score Definition: No Risk: No action required Datetime: 07/09/2018 20:04 Fall Score: 20 Fall Risk Score Definition: No Risk: No action required Datetime: 07/09/2018 14:45 EGA: 34.1 Fall Score: 20 Fall Risk Score Definition: No Risk: No action required Datetime: 07/09/2018 12:27 Fall Score: 0 Fall Risk Score Definition: No Risk: No action required Datetime: 07/09/2018 12:26 EGA: 33.4 Datetime: 06/26/2018 14:04 Fall Score: 0 Fall Risk Score Definition: No Risk: No action required Datetime: 06/26/2018 14:01 EGA: 31.5 Datetime: 06/24/2018 12:29 Fall Score: 0 Fall Risk Score Definition: No Risk: No action required Datetime: 06/24/2018 12:26 EGA: 31.3
== END 2018-07-31 00:25 | disposition home or self-care (01) ==
LOC: OBT 18:11 → L-D 18:12 → OBT 07-31 00:25
PROVIDERS: ATTEND Obstetrics & Gynecology
DX: O13.3 Gestational [pregnancy-induced] hypertension without significant proteinuria, third trimester (principal); Z3A.36 36 weeks gestation of pregnancy
CPT/HCPCS: 76818; 80053; 81001; 84560; 85025; 85384; 85610; 85730; Z7500; G0463

== ENCOUNTER 2018-08-02 07:30 | Inpatient (IN) | payer OTHER ==
[~2018-08-02] VITALS: Ht 162.6 cm; Wt 90.5 kg
[2018-08-02 08:16] VITALS: Ht 162.6 cm; Wt 90.5 kg
[2018-08-02 08:17] VITALS: BP 128/95; PULSE 110; RESP 18
[2018-08-02] MEDS: LACTATED RINGER'S 1,000 ML IV SCH ×2 (08:21→15:25)
[2018-08-02] MEDS ORDERED: BUTORPHANOL 2 MG INJ IV PRN (08:30)
[2018-08-02] MEDS ORDERED: OXYTOCIN 30 UNITS/LR 500 ML IV SCH ×3 (08:30→20:00)
[2018-08-02] MEDS ORDERED: MISOPROSTOL 200 MCG TAB PR PRN (08:30)
[2018-08-02] MEDS ORDERED: LIDOCAINE 1% (MPF) 30 ML INJ INJ PRN (08:30)
[2018-08-02] MEDS ORDERED: METHYLERGONOVINE 0.2 MG INJ IM PRN (08:30)
[2018-08-02] MEDS ORDERED: IBUPROFEN 600 MG TAB PO PRN (08:30)
[2018-08-02] MEDS ORDERED: OXYTOCIN 30 UNITS/LR 500 ML IV PRN (08:30)
[2018-08-02] MEDS ORDERED: CARBOPROST 250 MCG INJ IM PRN (08:30)
[2018-08-02] MEDS ORDERED: AMPICILLIN 2 GM/NS (PMX) 100 ML IV ONE (08:30)
[2018-08-02] MEDS: MISOPROSTOL 50 MCG CAPSULE PO SCH ×2 (11:38→16:17)
[2018-08-02] MEDS ORDERED: AMPICILLIN 1 GM/NS (PMX) 50 ML IV SCH (12:30)
--- NOTE | 2018-08-02 17:21 | PREOPHP ---
DATE OF ADMISSION: 08/02/2018 HISTORY OF PRESENT ILLNESS: Ms. Barnhart is a 28-year-old 3, para 2, EDC 08/23/2018 intrauteri ne at 37 weeks gestational age, admitted today for induction secondary to preeclampsia. Sh e denies any headache, nausea, vomiting, shortness of breath, or visual changes. She has been receiv ing care at [facility]. MEDICATIONS: vitamins. PAST MEDICAL HISTORY: Preeclampsia without severe features. MEDICATIONS: vitamins. PAST SURGICAL HISTORY: None. OBSTETRICAL HISTORY: x2 vaginal delivery. GYNECOLOGIC HISTORY: 10, regular 3 to 4 days. Denies any sexually transmitted. Sexually active wit h 1 partner. SOCIAL HISTORY: Denies any smoking, drugs or alcohol. FAMILY HISTORY: None. REVIEW OF SYSTEMS: All within normal except history of present illness. PHYSICAL EXAMINATION: HEENT: Within normal. LUNGS: CTA. CARDIOVASCULAR: S1, S2, regular rhythm. ABDOMEN: Gravid, nontender. Negative CVA bilaterally. EXTREMITIES: Negative edema. No calf tenderness. PELVIC: Vaginal exam 2 to 3 cm dilated, 80% effaced, -2 station, intact. heart tracing catego ry 1. [place] regular contractions. VITAL SIGNS: Currently stable with blood pressures of 140s over 80s. Estimated weight of 2773 grams. ASSESSMENT: Intrauterine at 37 weeks gestational age, preeclampsia without severe features , admitted for induction, currently on the Cytotec regimen for cervical ripening. PLAN: Start Pitocin per protocol, to consider magnesium sulfate for seizure prophylaxis if patient h as any severe features of preeclampsia. Dictated By: TESHA GARCIA/LIO Conf#: [id number] DID#: [id number]
[2018-08-03] VITALS (8 sets, daily range): BP systolic 117–153; BP diastolic 68–86; PULSE 57–110; RESP 14–18
[2018-08-03] MEDS: LACTATED RINGER'S 1,000 ML IV SCH ×3 (00:43→19:50)
[2018-08-03] MEDS ORDERED: OXYTOCIN 30 UNITS/LR 500 ML IV SCH (12:54)
--- NOTE | 2018-08-03 12:54 | LDN ---
Date/Time of Note Date/Time of Note DATE: 08/03/18 TIME: 12:53 Delivery Summary Weeks of Gestation 37 Placenta Delivered: Spontaneously Meconium: none Laceration repair: 1st degree perineal laceration repair with 3-0 chromic Anesthesia type: Local Estimated blood loss: 150 Sponge & Needle done & correct: Yes All needle counts correct: Yes Any foreign bodies felt in the: No Delivery Information Sex Sex: female Apgars 1 Minute: 9 5 Minute: 9 Suctioning Nose & mouth suctioned at jeremy: No Delee suction performed: No Umbilical Cord Umbilical cord with: 3 Vessels Cord presentations: nuchal cord Nuchal cord present X: 1 Cord Blood was obtained: Yes TESHA DASH MD Aug 03, 2018 12:54
[2018-08-03] MEDS ORDERED: ONDANSETRON 4 MG INJ IV PRN (13:00)
[2018-08-03] MEDS ORDERED: NACL 0.9% 3 ML SYG IV SCH (13:00)
[2018-08-03] MEDS ORDERED: LANOLIN HPA 1 PKT TOP PRN (13:00)
[2018-08-03] MEDS ORDERED: METHYLERGONOVINE 0.2 MG INJ IM PRN (13:00)
[2018-08-03] MEDS ORDERED: OXYTOCIN 30 UNITS/LR 500 ML IV PRN (13:00)
[2018-08-03] MEDS ORDERED: MISOPROSTOL 200 MCG TAB PR PRN (13:00)
[2018-08-03] MEDS ORDERED: WITCH HAZEL/GLYCERIN PAD PR PRN (13:00)
[2018-08-03] MEDS ORDERED: SENNA/DOCUSATE NA (8.6MG/50MG) TAB PO PRN (13:00)
[2018-08-03] MEDS ORDERED: OXYCODONE/ASPIRIN (4.88/325) TAB PO PRN ×2 (13:00)
[2018-08-03] MEDS ORDERED: BENZOCAINE 20% 56 ML SPRAY TOP PRN (13:00)
[2018-08-03] MEDS ORDERED: CARBOPROST 250 MCG INJ IM PRN (13:00)
[2018-08-03] MEDS ORDERED: DIBUCAINE 1% 30 GM OINT TOP PRN (13:00)
[2018-08-03] MEDS ORDERED: MAGNESIUM SULFATE 20 GM/500 ML 500 ML IV ONE (13:36)
[2018-08-03] MEDS ORDERED: MAGNESIUM SULFATE 4 GM/100 ML 100 ML ONE (13:37)
[2018-08-03] MEDS ORDERED: MAGNESIUM SULFATE 4 GM/100 ML 100 ML IV ONE (14:00)
[2018-08-03] MEDS: MAGNESIUM SULFATE 20 GM/500 ML 500 ML IV SCH (14:21)
[2018-08-03] MEDS: IBUPROFEN 600 MG TAB PO SCH ×2 (17:13→23:59)
[2018-08-03] MEDS: SENNA/DOCUSATE NA (8.6MG/50MG) TAB PO SCH (20:57)
[2018-08-04] VITALS (12 sets, daily range): BP systolic 109–137; BP diastolic 66–84; PULSE 77–97; RESP 18–20
[2018-08-04] MEDS: MAGNESIUM SULFATE 20 GM/500 ML 500 ML IV SCH (00:33)
[2018-08-04] MEDS: IBUPROFEN 600 MG TAB PO SCH ×4 (06:02→23:30)
--- NOTE | 2018-08-04 09:07 | PD.PPDC ---
CAR REPAIRER APPRENTICE Discharge Instruction Condition [id number] Patient Condition: [id number] Fair Diet [id number] Diet: [id number] Resume Regular Diet Activity/Restrictions [id number] Activity: [id number] Normal Activity May Shower [id number] Restrictions: Fitrb5e No Exercising No Lifting No Driving No Sexual Activity Nothing in the Vagina No [place] No Tampons, douche Return to clinic for [id number] ADMITTANCE ATTENDANT Instructions: [id number] Fever greater than 101 Chills Worsening abdominal pain Excessive Vaginal Bleeding More than 2 pads per hour Unable to tolerate diet [id number] OB Instructions: [id number] Breast Tenderness Depression Blurried Vision Headache Comment: preeclamptic precautions [id number] Surgical Instructions: [id number] Incisional Drainage Incisional Redness TESHA DASH MD Aug 04, 2018 09:07
--- NOTE | 2018-08-04 09:10 | DS ---
Date/Time of Note Date/Time of Note DATE: 08/04/18 TIME: 09:08 Obstetrical Discharge Record Final Diagnosis Final Diagnosis: Term delivered Vaginal Delivery Obstetrical Delivery: Spontaneous, Laceration, Repaired Complications Other (preeclampsia) Augmentation: No Induction: Yes Condition on Discharge Physical Assessment Last Vitals: stable afebrile Voiding: Yes Bowel Movement: Yes Breast: Soft, non-tender, Filling Fundus: Firm Abdomen and Incision: soft nt no epigastric tenderness Calf Tenderness: No Patient Condition: TESHA Ding MD Aug 04, 2018 09:10
[2018-08-04] MEDS: SENNA/DOCUSATE NA (8.6MG/50MG) TAB PO SCH ×2 (11:26→21:28)
[2018-08-05 04:10] VITALS: BP 133/81; PULSE 78; RESP 18
[2018-08-05] MEDS: IBUPROFEN 600 MG TAB PO SCH ×2 (05:38→12:09)
[2018-08-05 08:00] VITALS: BP 121/71; PULSE 75; RESP 19
[2018-08-05] MEDS: SENNA/DOCUSATE NA (8.6MG/50MG) TAB PO SCH (09:00)
== END 2018-08-05 15:21 | disposition home or self-care (01) | DRG 807 ==
LOC: L-D 07:51 → PP1 08-03 15:39
PROVIDERS: ADMIT Obstetrics & Gynecology; ATTEND Obstetrics & Gynecology
PROC: 10E0XZZ Delivery of Products of Conception, External Approach (ICD-10-PCS; principal; 2018-08-04)
PROC: 0HQ9XZZ Repair Perineum Skin, External Approach (ICD-10-PCS; 2018-08-04)
PROC: 6A550ZT Pheresis of Cord Blood Stem Cells, Single (ICD-10-PCS; 2018-08-04)
PROC: 3E033VJ Introduction of Other Hormone into Peripheral Vein, Percutaneous Approach (ICD-10-PCS; 2018-08-04)
DX: O80 Encounter for full-term uncomplicated delivery (principal); Z37.0 Single live birth; Z3A.37 37 weeks gestation of pregnancy
CPT/HCPCS: 76815; 80053; 81001; 83735; 84560; 85025; 85384; 85610; 85730; 86592; 86850; 86900; 86901; 87340; 90686; J2590; J3475; J7120